=== PATIENT | female | born 1940 | race Caucasian/White ===

== ENCOUNTER 2019-02-01 18:23 | Emergency (ER) | payer MEDICARE ==
[~2019-02-01] VITALS: Ht 154.9 cm; Wt 70.3 kg
[~2019-02-01 18:23] MED LIST: Anastrozole1 GM PO; Ciloxan5 ML BOTHEYES; FLAX SEED OIL; GRAVIOLA PO; IBUP400 PO; LEVSOD88 PO; PREG50 PO
== END 2019-02-01 19:44 | disposition home or self-care (01) ==
LOC: ER 18:23
DX: M25.562 Pain in left knee (principal); E03.9 Hypothyroidism, unspecified; Z91.040 Latex allergy status; Z79.899 Other long term (current) drug therapy
CPT/HCPCS: 29505; 73562-LT; 99283-25

== ENCOUNTER 2019-04-15 15:50 | Emergency (ER) | payer MEDICARE, OTHER ==
[~2019-04-15] VITALS: Ht 157.5 cm; Wt 69.4 kg
[2019-04-15 17:07] LABS: BASOPHILS ABSOLUTE AUTO 0.05 K/mm3 (0.00-0.23); BASOPHILS PERCENT AUTO 1 % (0-2); EOSINOPHILS ABSOLUTE AUTO 0.09 K/mm3 (0.00-0.68); EOSINOPHILS PERCENT AUTO 2 % (0-6); Hematocrit 46.8 % (33.0-51.0); Hemoglobin 14.7 g/dL (11.5-16.0); IMMATURE GRAN ABSOLUTE AUTO 0.01 K/mm3 (0.00-0.10); IMMATURE GRAN PERCENT AUTO 0 % (0-1); LYMPHOCYTES ABSOLUTE AUTO 2.06 K/mm3 (0.84-5.20); LYMPHOCYTES PERCENT AUTO 37 % (21-46); MONOCYTES ABSOLUTE AUTO 0.36 K/mm3 (0.16-1.47); MONOCYTES PERCENT AUTO 7 % (4-13); Mean Corpuscular HGB 28.7 pg (26.0-34.0); Mean Corpuscular HGB Conc 31.4 g/dL (31.5-36.5); Mean Corpuscular Volume 91 fL (80-100); Mean Platelet Volume 8.7 fL (9.1-12.4); NEUTROPHILS ABSOLUTE AUTO 2.95 K/mm3 (1.96-9.15); NEUTROPHILS PERCENT AUTO 54 % (41-73); Platelet Count 211 K/mm3 (150-400); RDW Coefficient Variation 12.3 % (11.7-14.2); RDW Standard Deviation 42.3 fL (35.1-46.3); Red Blood Cell Count 5.12 M/mm3 (3.80-5.20); White Blood Cell Count 5.52 K/mm3 (4.00-11.30)
[2019-04-15 17:26] LABS: Alanine Aminotransfer (ALT/SGP 28 U/L (12-78); Albumin, Blood 4.1 g/dL (3.4-5.0); Alk Phos 58 U/L (50-136); Anion Gap 3 mmol/L (6-16); Aspartate Aminotrans (AST/SGOT 34 U/L (12-37); Bilirubin, Total 0.7 mg/dL (0.1-1.0); Blood Urea Nitrogen 14 mg/dL (8-24); Bun/Creatinine Ratio 17.5 (12.0-20.0); CO2, Blood 31 mmol/L (21-32); Calcium, Blood 9.3 mg/dL (8.5-10.1); Chloride, Blood 103 mmol/L (98-108); Glomerular Filtration Rate >60 (60-); Glucose, Blood 108 mg/dL (70-99); Potassium, Blood 3.8 mmol/L (3.5-5.5); Sodium, Blood 137 mmol/L (136-145); Total Protein, Blood 8.1 g/dL (6.4-8.2)
[2019-04-15 19:17] LABS: Source, Urine Clean Catch
[2019-04-15 19:22] LABS: Appearance, Urine Hazy (Clear); Bilirubin, Urine Neg (Neg); Blood, Urine Neg (Neg); Color, Urine Yellow (P-Yellow); Glucose Qualitative, Urine Neg (Neg); Ketones, Urine Neg (Neg); Leukocyte Esterase, Urine 2+ (Neg); Nitrite, Urine Neg (Neg); Protein, Urine Neg (Neg); Specific Gravity, Urine 1.015 (1.003-1.022); Urobilinogen, Urine NORM (Normal)
[2019-04-15 19:33] LABS: Bacteria Few /hpf; Red Blood Cells, Urine 0-2 /hpf (0-2); Squamous Epithelial Cells Rare /hpf (Few)
[2019-04-15 19:34] LABS: Amorphous Mod (0-Heavy)
== END 2019-04-15 20:54 | disposition home or self-care (01) ==
LOC: ER 15:50
PROVIDERS: Emergency Medicine; Physician Assistant
DX: R53.1 Weakness (principal)
CPT/HCPCS: 36415; 71046; 80053; 81001; 84484; 85025; 85379; 87086; 93005; 93010; 99284-25

== ENCOUNTER → 2020-02-14 | Outpatient (CLI) | payer MEDICARE ==
[2020-02-14 15:52] LABS: BASOPHILS ABSOLUTE AUTO 0.04 K/mm3 (0.00-0.23); BASOPHILS PERCENT AUTO 1 % (0-2); EOSINOPHILS ABSOLUTE AUTO 0.13 K/mm3 (0.00-0.68); EOSINOPHILS PERCENT AUTO 2 % (0-6); Hematocrit 43.4 % (33.0-51.0); Hemoglobin 13.7 g/dL (11.5-16.0); IMMATURE GRAN ABSOLUTE AUTO 0.02 K/mm3 (0.00-0.10); IMMATURE GRAN PERCENT AUTO 0 % (0-1); LYMPHOCYTES PERCENT AUTO 31 % (21-46); MONOCYTES ABSOLUTE AUTO 0.36 K/mm3 (0.16-1.47); MONOCYTES PERCENT AUTO 6 % (4-13); Mean Corpuscular HGB 27.7 pg (26.0-34.0); Mean Corpuscular HGB Conc 31.6 g/dL (31.5-36.5); Mean Corpuscular Volume 88 fL (80-100); NEUTROPHILS ABSOLUTE AUTO 3.94 K/mm3 (1.96-9.15); NEUTROPHILS PERCENT AUTO 61 % (41-73); Platelet Count 336 K/mm3 (150-400); RDW Coefficient Variation 12.3 % (11.7-14.2); RDW Standard Deviation 39.4 fL (35.1-46.3); Red Blood Cell Count 4.94 M/mm3 (3.80-5.20); White Blood Cell Count 6.49 K/mm3 (4.00-11.30)
[2020-02-14 15:56] LABS: Bun/Creatinine Ratio 14.4 (12.0-20.0); Creatinine, Blood 0.97 mg/dL (0.40-1.00); Potassium, Blood 4.8 mmol/L (3.5-5.5)
== END | disposition home or self-care (01) ==
LOC: LAB EV 15:47 → LAB SHORT 15:47
PROVIDERS: Family Medicine
DX: N39.0 Urinary tract infection, site not specified (principal); R53.83 Other fatigue
CPT/HCPCS: 80048; 85025; 87077; 87086; 87186

== ENCOUNTER 2021-02-06 14:37 | Observation (INO) | payer MEDICARE ==
[~2021-02-06] VITALS: Ht 167.6 cm; Wt 68.5 kg
[~2021-02-06 14:37] MED LIST changes: +PREG150 PO; -PREG50 PO
[2021-02-06] MEDS ORDERED: Valerian Root100 MG (14:52)
[2021-02-06] MEDS ORDERED: ALERTNESS AID200 MG (14:52)
[2021-02-06 14:58] LABS: BASOPHILS ABSOLUTE AUTO 0.05 K/mm3 (0.00-0.23); BASOPHILS PERCENT AUTO 1 % (0-2); EOSINOPHILS PERCENT AUTO 4 % (0-6); Hematocrit 40.6 % (33.0-51.0); Hemoglobin 12.9 g/dL (11.5-16.0); IMMATURE GRAN ABSOLUTE AUTO 0.01 K/mm3 (0.00-0.10); IMMATURE GRAN PERCENT AUTO 0 % (0-1); LYMPHOCYTES ABSOLUTE AUTO 2.14 K/mm3 (0.84-5.20); LYMPHOCYTES PERCENT AUTO 42 % (21-46); MONOCYTES ABSOLUTE AUTO 0.41 K/mm3 (0.16-1.47); MONOCYTES PERCENT AUTO 8 % (4-13); Mean Corpuscular HGB 28.1 pg (26.0-34.0); Mean Corpuscular HGB Conc 31.8 g/dL (31.5-36.5); Mean Corpuscular Volume 89 fL (80-100); Mean Platelet Volume 8.8 fL (9.1-12.4); NEUTROPHILS ABSOLUTE AUTO 2.26 K/mm3 (1.96-9.15); NEUTROPHILS PERCENT AUTO 45 % (41-73); Platelet Count 217 K/mm3 (150-400); RDW Coefficient Variation 12.8 % (11.7-14.2); RDW Standard Deviation 41.6 fL (35.1-46.3); Red Blood Cell Count 4.59 M/mm3 (3.80-5.20); White Blood Cell Count 5.07 K/mm3 (4.00-11.30)
[2021-02-06 15:22] LABS: Alanine Aminotransfer (ALT/SGP 20 U/L (12-78); Albumin, Blood 3.7 g/dL (3.4-5.0); Alk Phos 46 U/L (50-136); Anion Gap 1 mmol/L (6-16); Aspartate Aminotrans (AST/SGOT 20 U/L (12-37); Bilirubin, Total 0.4 mg/dL (0.1-1.0); Blood Urea Nitrogen 23 mg/dL (8-24); Bun/Creatinine Ratio 29.3 (12.0-20.0); CO2, Blood 31 mmol/L (21-32); Calcium, Blood 8.8 mg/dL (8.5-10.1); Chloride, Blood 105 mmol/L (98-108); Creatinine, Blood 0.79 mg/dL (0.40-1.00); Globulin, Blood 3.6 g/dL (2.2-4.0); Glomerular Filtration Rate >60 (60-); Glucose, Blood 87 mg/dL (70-99); Sodium, Blood 137 mmol/L (136-145); Total Protein, Blood 7.3 g/dL (6.4-8.2); Troponin I <0.015 ng/mL (0.000-0.040)
[2021-02-06] MEDS ORDERED: OXYM.05NI (20:47)
[2021-02-06] MEDS ORDERED: PSEU120ER PO (20:48)
[2021-02-06] MEDS ORDERED: Valerian Root500 MG PO (20:50)
[2021-02-06] MEDS ORDERED: MELA3 PO (20:50)
[2021-02-06] MEDS ORDERED: IBUP200 PO (20:51)
[2021-02-06] MEDS ORDERED: TRIPLE MAGNESI400 MG PO (20:53)
[2021-02-06] MEDS ORDERED: [UNRECOGNIZED DRUG - OTHER] PO ×2 (20:54→20:55)
[2021-02-06] MEDS ORDERED: [UNRECOGNIZED DRUG - OTHER] PO (20:56)
[2021-02-06] MEDS ORDERED: [UNRECOGNIZED DRUG - OTHER] PO (20:59)
[2021-02-06] MEDS ORDERED: Vitamin B Comple1 EA PO (21:03)
[2021-02-06] MEDS ORDERED: VITAMIN D PO (21:04)
[2021-02-06] MEDS ORDERED: C COMPLEX1000 M1 PO (21:05)
[2021-02-06] MEDS ORDERED: GINGER PO (21:05)
[2021-02-06] MEDS ORDERED: CINNAMON PO (21:06)
[2021-02-06] MEDS ORDERED: Selenomax200 MCG PO (21:07)
[2021-02-06] MEDS ORDERED: NATOKINASE PO (21:08)
[2021-02-06] MEDS ORDERED: MULVITA PO (21:08)
[2021-02-06] MEDS ORDERED: [UNRECOGNIZED DRUG - OTHER] PO (21:09)
[2021-02-06] MEDS ORDERED: LEVOTHYROXINE PO (21:30)
[2021-02-06] MEDS ORDERED: COUGH DROPS PO (21:31)
--- NOTE | 2021-02-07 04:10 | NUR ---
SHIFT SUMMARY A/OX4, IND TO BATHROOM. DENIES CHEST PAIN/PRESSURE AT THIS TIME. TELE IN PLACE SR WITH BBB IN THE 70'S. NPO EXCEPT ICE CHIPS SINCE MIDNIGHT. PLAN IS TO HAVE STRESS TEST COMPLETED TODAY. VSS, NO ACUTE CHANGES AT THIS TIME. BED IN LOWEST POSITION WITH CALL LIGHT IN REACH. WILL CONTINUE TO MONITOR AND REPORT TO ONCOMING RN.
[2021-02-07 06:52] LABS: BASOPHILS ABSOLUTE AUTO 0.05 K/mm3 (0.00-0.23); BASOPHILS PERCENT AUTO 1 % (0-2); EOSINOPHILS ABSOLUTE AUTO 0.24 K/mm3 (0.00-0.68); EOSINOPHILS PERCENT AUTO 5 % (0-6); Hematocrit 38.7 % (33.0-51.0); Hemoglobin 12.3 g/dL (11.5-16.0); IMMATURE GRAN PERCENT AUTO 0 % (0-1); LYMPHOCYTES PERCENT AUTO 50 % (21-46); MONOCYTES ABSOLUTE AUTO 0.31 K/mm3 (0.16-1.47); MONOCYTES PERCENT AUTO 6 % (4-13); Mean Corpuscular HGB 28.4 pg (26.0-34.0); Mean Corpuscular HGB Conc 31.8 g/dL (31.5-36.5); Mean Corpuscular Volume 89 fL (80-100); Mean Platelet Volume 8.9 fL (9.1-12.4); NEUTROPHILS ABSOLUTE AUTO 1.92 K/mm3 (1.96-9.15); NEUTROPHILS PERCENT AUTO 38 % (41-73); Platelet Count 196 K/mm3 (150-400); RDW Coefficient Variation 12.9 % (11.7-14.2); RDW Standard Deviation 42.5 fL (35.1-46.3); Red Blood Cell Count 4.33 M/mm3 (3.80-5.20); White Blood Cell Count 5.02 K/mm3 (4.00-11.30)
[2021-02-07 07:16] LABS: Alanine Aminotransfer (ALT/SGP 20 U/L (12-78); Albumin, Blood 3.2 g/dL (3.4-5.0); Alk Phos 38 U/L (50-136); Anion Gap 2 mmol/L (6-16); Aspartate Aminotrans (AST/SGOT 19 U/L (12-37); Bilirubin, Total 0.3 mg/dL (0.1-1.0); Blood Urea Nitrogen 23 mg/dL (8-24); Bun/Creatinine Ratio 29.6 (12.0-20.0); CHOL/HDL RATIO 2.8; CO2, Blood 30 mmol/L (21-32); Calcium, Blood 8.2 mg/dL (8.5-10.1); Chloride, Blood 108 mmol/L (98-108); Cholesterol 173 mg/dL (50-200); Creatinine, Blood 0.78 mg/dL (0.40-1.00); Globulin, Blood 3.2 g/dL (2.2-4.0); Glomerular Filtration Rate >60 (60-); Glucose, Blood 81 mg/dL (70-99); HDL Cholesterol 62 mg/dL (>39); LDL/HDL RATIO 1.5; Low Density Lipoprotein Chol 94 mg/dL (0-110); Potassium, Blood 4.1 mmol/L (3.5-5.5); Sodium, Blood 140 mmol/L (136-145); Total Protein, Blood 6.4 g/dL (6.4-8.2); Triglycerides 84 mg/dL (30-160); Troponin I <0.015 ng/mL (0.000-0.040); Very Low Density Lipoprot Chol 16 mg/dL (6-32)
--- NOTE | 2021-02-07 14:31 | NUR ---
ADMIT: 02/06/21 DISCHARGE: 02/07/21 DX: Chest pain CC: [email or web address] [facility] CALL: pt at home- [phone] ([facility]- 1week) RESIDENCE: home with spouse CAREGIVER: Dilshad Mancia, Spouse / Partner, Feliberto Mancia , Child, DX: Breast cancer, Right mastecotmy, hypothyroidism, pain in lower limbs, see list DME: breast prosthesis CCM: none HOME HEALTH: none SUMMARY: Admit: 02/06/21 02/07/21- per chart review with Dr. Hernandez, pt is requested a provider change form. She has stress test scheduled for today and can be discharged home after completed. Dr. Hernandez reports that pt has not had follow up care for breast cancer, diagnosed back in 2010. Pt reports that she has been taking "fish dewormer" to cure her cancer. NM lexiscan stress test was ordered. Met with pt and she states that either a friend or her will come to get her. Her can help her with limited things as she is his caregiver. Pt's pharmacy is [facility] and does not need any medical equipment needs at discharge. She does report that there are stairs to get into the home and she is not concerned about using them. Pt requested a change in provider form and pt asked for assistance to fill out. Wrote out what the pt wanted on form and will fax to clinic on pt's behalf. Pt states that she would like to be seen by a medical doctor and not a mid-level. She wants to be with a doctor and feels that a doctor can answer her health questions better than a PA. -angelo
[2021-02-07] MEDS ORDERED: EUTHYROX88 MCG PO (16:35)
[2021-02-07] MEDS ORDERED: Prinivil10 MG PO (16:35)
--- NOTE | 2021-02-07 17:30 | NUR ---
PT DISCHARGED @ APPROX 1715. TAKEN DOWN TO PRIVATE VEHICLE VIA WHEELCHAIR BY ELECTRICAL CONTINUITY INSPECTOR. PT'S AND NEIGHBOR CAME TO PSYCHOLOGIST COUNSELING THE PT. DISCHARGE INSTRUCTIONS REVIEWED c PT AND ANSWERED ANY QUESTIONS AT THIS TIME. IV WAS REMOVED AND SITE APPEARED WNL. STRESS TEST WAS COMPLETED PRIOR TO DC TODAY. NEEDED RX FAXED TO PHARMACY OF PT CHOICE.
== END 2021-02-07 17:18 | disposition home or self-care (01) ==
LOC: ER 14:37 → MEDS 14:38
PROVIDERS: Emergency Medicine; ADMIT Student in an Organized Health Care Education/Training Program
DX: R07.9 Chest pain, unspecified (principal); I10 Essential (primary) hypertension; C50.911 Malignant neoplasm of unspecified site of right female breast; E03.9 Hypothyroidism, unspecified; F55.1 Abuse of herbal or folk remedies
CPT/HCPCS: 36415; 71045; 78452; 80053; 80061; 84484; 85025; 93005; 93010; 93017; 99285-25; A9270; A9270-GY; A9500; G0378; J0706; J1650; J2785

== ENCOUNTER 2022-06-26 18:54 | Emergency (ER) | payer MEDICARE ==
[~2022-06-26] VITALS: Ht 154.9 cm; Wt 51.7 kg
[~2022-06-26 18:54] MED LIST changes: +ALERTNESS AID200 MG; +C COMPLEX1000 M1 PO; +CINNAMON PO; +COUGH DROPS PO; +EUTHYROX88 MCG PO; +GINGER PO; +IBUP200 PO; +LEVOTHYROXINE PO; +MELA3 PO; +MULVITA PO; +NATOKINASE PO; +OXYM.05NI; +PSEU120ER PO; +Prinivil10 MG PO; +Selenomax200 MCG PO; +TRIPLE MAGNESI400 MG PO; +VITAMIN D PO; +Valerian Root100 MG; +Valerian Root500 MG PO; +Vitamin B Comple1 EA PO; +[UNRECOGNIZED DRUG - OTHER] PO; +[UNRECOGNIZED DRUG - OTHER] PO; +[UNRECOGNIZED DRUG - OTHER] PO; +[UNRECOGNIZED DRUG - OTHER] PO
== END 2022-06-26 20:55 | disposition home or self-care (01) ==
LOC: ER 18:54
DX: S42.214A Unspecified nondisplaced fracture of surgical neck of right humerus, initial encounter for closed fracture (principal); W19.XXXA Unspecified fall, initial encounter; Z91.040 Latex allergy status; Z79.899 Other long term (current) drug therapy
CPT/HCPCS: 73030; 99283-25